=== PATIENT | male | born 1960 | race African-American/Black ===

== ENCOUNTER 2020-04-14 11:49 | Emergency (ER) | payer MEDICAID, MEDICARE ==
[~2020-04-14] VITALS: Ht 175.3 cm; Wt 79.2 kg
--- NOTE | 2020-04-14 12:15 | NUR ---
PT C/O PAINFUL URINATION AND DRIBBLING X1 YEAR. SEEN A COUPLE TIMES IN DIFFERENT STATES FOR THIS, PRESCRIBED FLOMAX BOTH TIMES. PT DID NOT F/U WITH UROLOGY. DENIES UTI. PT PROVIDED URINE SAMPLE. PT CONNECTED TO MONITORING. CALL LIGHT IN REACH.
[2020-04-14 12:32] LABS: MICROSCOPIC NOT IND
[2020-04-14 12:36] LABS: CULTURE INDICATED? NO
--- NOTE | 2020-04-14 13:36 | NUR ---
AT BEDSIDE FOR ASSESSMENT.
[2020-04-14 14:21] VITALS: BP 133/82
--- NOTE | 2020-04-14 14:22 | NUR ---
BLADDER SCAN SHOWED ABOUT 550ML RESIDUAL URINE AFTER PT PROVIDED URINE SAMPLE. MINER PLACED PER MD ORDER. CLEAR, YELLOW URINE DRAINING. ABOUT 650ML URINE DRAINED FROM INDWELLING MINER. PT CONNECTED TO LEG BAG.
== END 2020-04-14 14:53 | disposition home or self-care (01) ==
LOC: ED 12:00
DX: N40.1 Benign prostatic hyperplasia with lower urinary tract symptoms (principal); R33.8 Other retention of urine; F17.200 Nicotine dependence, unspecified, uncomplicated
CPT/HCPCS: 51702; 81003; 99284

== ENCOUNTER 2020-04-18 08:37 | Emergency (ER) | payer MEDICARE ==
[~2020-04-18] VITALS: Ht 172.7 cm; Wt 79.8 kg
--- NOTE | 2020-04-18 09:37 | NUR ---
PT STATES SENT BY HIS UROLOGIST BECAUSE "I NEED MY CATHETER OUT." PT HAS BLOODY URINE DRAINING INTO HIS CATHETER BAG, STATES HIS URINE HAS BEEN BLOODY SINCE CATH PLACED. WILL FOLLOW ORDERS.
--- NOTE | 2020-04-18 09:53 | NUR ---
PT'S CATH D/C'D PER ER PA-C ORDER. PT GIVEN WATER. PT TO PEE ON OWN BEFORE D/C. CONT TO MONITOR.
[2020-04-18 10:58] VITALS: BP 132/84
--- NOTE | 2020-04-18 10:58 | NUR ---
PT UP TO RR FOR BM. PT HAS NOT URINATED YET. PT REMAINS ON MONITORS, VSS. CONT TO MONITOR.
--- NOTE | 2020-04-18 11:30 | NUR ---
PT ABLE TO VOID 30ML OF BLOODY URINE, ER PAGianniC AWARE. URINE COLLECTED AND SENT TO LAB.
[2020-04-18 11:40] LABS: MICROSCOPIC INDICATED
--- NOTE | 2020-04-18 12:14 | NUR ---
TASK RN: POST VOID RESIDUAL = 200ML. DISCUSSED WITH ER PAM
--- NOTE | 2020-04-18 12:44 | NUR ---
BREAK RN: Patient/Caregiver given discharge instructions and they have confirmed that they understand the instructions. Patient ambulatory with steady gait.
== END 2020-04-18 12:45 | disposition home or self-care (01) ==
LOC: ED 10:11
DX: N40.1 Benign prostatic hyperplasia with lower urinary tract symptoms (principal); R31.0 Gross hematuria; R33.8 Other retention of urine; F17.200 Nicotine dependence, unspecified, uncomplicated
CPT/HCPCS: 81001; 87086; 99283

== ENCOUNTER 2020-06-27 06:50 | Emergency (ER) | payer MEDICARE, MEDICAID ==
[~2020-06-27] VITALS: Ht 175.3 cm; Wt 83.2 kg
[2020-06-27 06:54] VITALS: BP 171/90
[2020-06-27] MEDS ORDERED: OLAN20TA3 PO (07:09)
--- NOTE | 2020-06-27 07:40 | NUR ---
Patient given discharge instructions and Rx, they have confirmed that they understand the instructions. Patient ambulatory with steady gait.
== END 2020-06-27 07:41 | disposition home or self-care (01) ==
LOC: ED 07:21
DX: F31.9 Bipolar disorder, unspecified (principal); F20.9 Schizophrenia, unspecified; Z76.0 Encounter for issue of repeat prescription; F17.210 Nicotine dependence, cigarettes, uncomplicated
CPT/HCPCS: 99281